=== PATIENT | female | born 1975 | race African-American/Black ===

== ENCOUNTER → 2019-11-18 | Day surgery (SDC) | payer BC, OTHER ==
[2019-10-29 17:33] LABS: BASOPHILS % 0.2 % (0.0-1.0); EOSINOPHILS % 0.1 % (0.0-6.0); HEMATOCRIT 44.3 % (34.2-44.1); HEMOGLOBIN 14.7 g/dL (12.0-16.0); LYMPHOCYTES # (AUTO) 1.9 (1.0-3.2); LYMPHOCYTES % 11.3 % (18.0-39.1); MEAN CORPUSCULAR HEMOGLOBIN 31.4 pg (28-32); MEAN CORPUSCULAR HGB CONC 33.2 g/dL (31-35); MEAN CORPUSCULAR VOLUME 94.7 fL (81-99); MONOCYTES # (AUTO) 0.8 (0.2-0.8); MONOCYTES % 4.9 % (4.4-11.3); NEUTROPHILS # (AUTO) 13.7 (2.1-6.9); PLATELET COUNT 304 x10e3/uL (140-360); RED BLOOD COUNT 4.68 x10e6/uL (3.6-5.1); RED CELL DISTRIBUTION WIDTH 13.6 % (11.7-14.4)
[2019-10-29 17:51] LABS: ANION GAP 16.6 mmol/L (8-16); BLOOD UREA NITROGEN 14 mg/dL (7-26); BUN/CREATININE RATIO 16 (6-25); CALCIUM 9.3 mg/dL (8.4-10.2); CARBON DIOXIDE 27 mmol/L (22-29); CHLORIDE 99 mmol/L (98-107); CREATININE, SERUM 0.89 mg/dL (0.57-1.11); EST GLOMERULAR FILTRATION RATE > 60 ML/MIN (60-); GLUCOSE 123 mg/dL (74-118); POTASSIUM 3.6 mmol/L (3.5-5.1); SODIUM 139 mmol/L (136-145)
[2019-11-12 15:02] LABS: BASOPHILS % 0.3 % (0.0-1.0); EOSINOPHILS # (AUTO) 0.2 (0.0-0.4); EOSINOPHILS % 2.8 % (0.0-6.0); HEMATOCRIT 41.5 % (34.2-44.1); HEMOGLOBIN 13.7 g/dL (12.0-16.0); LYMPHOCYTES # (AUTO) 1.5 (1.0-3.2); LYMPHOCYTES % 17.8 % (18.0-39.1); MONOCYTES # (AUTO) 0.5 (0.2-0.8); MONOCYTES % 6.1 % (4.4-11.3); NEUTROPHILS # (AUTO) 6.2 (2.1-6.9); NEUTROPHILS % 72.7 % (38.7-80.0); PLATELET COUNT 273 x10e3/uL (140-360); RED BLOOD COUNT 4.28 x10e6/uL (3.6-5.1); RED CELL DISTRIBUTION WIDTH 13.6 % (11.7-14.4)
[2019-11-12 15:16] LABS: ANION GAP 14.2 mmol/L (8-16); BLOOD UREA NITROGEN 13 mg/dL (7-26); BUN/CREATININE RATIO 15 (6-25); CALCIUM 8.9 mg/dL (8.4-10.2); CARBON DIOXIDE 22 mmol/L (22-29); CHLORIDE 109 mmol/L (98-107); CREATININE, SERUM 0.88 mg/dL (0.57-1.11); EST GLOMERULAR FILTRATION RATE > 60 ML/MIN (60-); GLUCOSE 90 mg/dL (74-118); POTASSIUM 4.2 mmol/L (3.5-5.1); SODIUM 141 mmol/L (136-145)
[~2019-11-18] MED LIST: ADVAIR 100-501 EACH INH; ALBUTEROL0.63 MG/3 NEB; AMBIEN5 MG PO; AMLODIPINE BESYL5 MG PO; BUPIVACAINE 0.5%/EPI 30 ML SDV INJ ONE; CEFAZOLIN SOD 1 GM/NS 50ML 100 ML IV ONE; EPINEPHRINE 1 MG/ML 30ML VIAL ONE; FENTANYL CITRATE/PF 100MCG/2 ML INJ ONE; HYDROCODONE/APAP 10MG-325MG TAB ONE; IRBESARTAN-HCT1 EACH PO; KETOROLAC TROMETHAMINE 30 MG/ML VIAL ONE; MEDROL4 MG PO; MIDAZOLAM HCL 2 MG/2 ML VIAL ONE; MOBIC15 MG PO; PROVENTIL HFA6.7 GM INH; SINGULAIR5 MG PO; TRIAMCINOLONE ACET 40 MG/ML VIAL ONE; ZYRTEC10 M3 PO
[2019-11-18 08:20] VITALS: BP 115/74
--- NOTE | 2019-11-18 12:27 | Operative Report ---
DATE OF PROCEDURE: 11/18/2019 SURGEON: CRISTHIAN GALLO MD HISTORY: Ms. Viveros is a patient, who I have been following in the Orthopedic Clinic with ongoing complaints of pain involving her left knee secondary to an underlying lateral meniscus tear with medial meniscus symptoms. She also had underlying chondromalacia of the patella with intermittent knee pain and effusion. The patient elected to forgo any further conservative treatment and proceed with diagnostic arthroscopy of her left knee. The patient was seen and identified in the preoperative holding area with her present and the left knee was marked by myself along with present. They both agreed. The risks and benefits of surgery were conveyed to her consisting, but not limited to the following: Infection, blood loss, nerve, blood vessel, tendon injury, ongoing pain, or stiffness. The patient was then brought back to the operative suite and placed supine on the operative table. Time-out was taken for Ms. Isabela Viveros for diagnostic arthroscopy of her left knee. All were in agreement including nursing staff, Anesthesia, and myself. The patient was then given a successful general intubation anesthetic and then transferred over to the operative table. The patient was then placed in a nonsterile tourniquet placed high in the left upper thigh and the left lower extremity was then sterilely prepped and draped in the usual standard fashion. The patient's left lower extremity was then sterilely prepped and draped in usual standard fashion. The limb was exsanguinated and tourniquet was inflated to approximately 250 mmHg. A 15 Bard-Andrey blade was used to make the vertical portal incisions well outside the borders of the patellar tendon along the medial and the lateral joint line respectively. Blunt trocar was inserted. Upon examination of the intercondylar notch, the patient has some marked underlying villonodular synovitis throughout the knee of both the medial and lateral compartments. An arthroscopic 4.0 shaver was then placed and an arthroscopic synovectomy was carried out removing the villonodular synovitis. Medial compartment: Examination of the medial compartment shows no signs of chondral defect noted. Upon probing of the medial meniscus, the medial meniscus found to be intact and stable. There were no signs of rice or loose bodies noted. She had just grade 1 changes to both the medial femoral condyle and tibial plateau, but otherwise no signs of cartilage defect noted. Examination of the patellofemoral joint shows underlying grade 2 to 3 changes of the patella, specifically along the medial facet. An arthroscopic chondroplasty was carried out using a 4.0 shaver removing the fibrillated cartilage, taken down to smooth contoured surface of both the medial and lateral facets. Lateral compartment: Examination of the lateral compartment showed the patient had a posterior horn tear noted along the red zone. I went ahead and abraded the posterior capsule. Upon which time, 2 Mitek arthroscopic suture anchors were used and the meniscus was tied back down to its original posterior capsule. Upon probing the meniscus tear, repair was found to be stable. The patient did have a grade 2 to 3 changes to the lateral femoral condyle and a chondroplasty was completed removing the fibrillated and delaminated cartilage down to smooth contoured surface. Copious irrigation was carried out on entire knee. One last exploration revealed no signs of rice or loose bodies. The knee was then thoroughly drained. The knee was injected with 30 mL of Marcaine for postoperative pain relief. The portal sites were closed using a 4-0 nylon suture in an interrupted fashion. Xeroform compressive dressing was applied and the patient was then successfully transferred to PACU after successful extubation and after the tourniquet was released. Once the tourniquet was released, there were no signs of acute pulsatile bleeding noted. Capillary refill was brisk. Pulses intact, +2/4. PREOPERATIVE DIAGNOSES: 1. Left knee lateral meniscus tear. 2. Left knee chondromalacia and patellofemoral chondromalacia. POSTOPERATIVE DIAGNOSES: 1. Posterior horn tear, left lateral meniscus. 2. Chondromalacia of the left knee, lateral compartment, and the patellofemoral joint. 3. Villonodular synovitis of the left knee. PROCEDURES: 1. Diagnostic arthroscopy of the left knee with a left knee posterior horn lateral meniscus repair with the use of 2 Mitek meniscal suture anchors. 2. Arthroscopic chondroplasty of the left knee of the patellofemoral joint and medial compartment. 3. Villonodular synovectomy of the left knee. ANESTHESIA: General. ESTIMATED BLOOD LOSS: Less than 5 mL. SPECIMENS: Synovium and rice bodies. COMPLICATIONS: None. CONDITION: Stable to PACU. The patient was seen in PACU. Dressings were clean and dry. Capillary refills were brisk. The intraoperative findings reviewed and discussed with her . Discharge wound care instructions were given. The patient asked to follow up in Orthopedic Clinic in 12 to 14 days. Weightbearing as tolerated with assistance of crutches or walker. The patient discharged with [place] as well as Keflex. Discharge instructions were discussed with nursing staff as well. MD DANNY OCHOA/LAVELL /[id number]
== END | disposition home or self-care (01) ==
LOC: OR 05:24
PROVIDERS: ATTEND Orthopaedic Surgery
DX: S83.272A Complex tear of lateral meniscus, current injury, left knee, initial encounter (principal); S83.262A Peripheral tear of lateral meniscus, current injury, left knee, initial encounter; M22.42 Chondromalacia patellae, left knee; M17.12 Unilateral primary osteoarthritis, left knee; D21.22 Benign neoplasm of connective and other soft tissue of left lower limb, including hip; G47.33 Obstructive sleep apnea (adult) (pediatric); E66.01 Morbid (severe) obesity due to excess calories; J45.909 Unspecified asthma, uncomplicated; I10 Essential (primary) hypertension; Z88.8 Allergy status to other drugs, medicaments and biological substances; Z01.810 Encounter for preprocedural cardiovascular examination; Z01.812 Encounter for preprocedural laboratory examination; Z11.59 Encounter for screening for other viral diseases; Z68.41 Body mass index [BMI] 40.0-44.9, adult
CPT/HCPCS: 29882; 36415 ×2; 80048 ×2; 85025 ×2; 93005; J0690; J1885; J2250; J3010; U0002 ×2; J3301